=== PATIENT | female | born 1995 | race Caucasian/White ===

== ENCOUNTER 2022-08-24 00:54 | Emergency (ER) | payer SELFPAY ==
[~2022-08-24] VITALS: Ht 149.9 cm; Wt 74.0 kg
[2022-08-24 01:37] LABS: BASOPHILS % 0.5 % (0.0-2.0); HEMATOCRIT. 40.1 % (36.0-48.0); HEMOGLOBIN. 13.7 g/dL (12.0-16.0); LYMPHOCYTES % 43.3 % (20.0-50.0); MEAN CORPUSCULAR HEMOGLOBIN 28.8 pg (28.0-32.0); MEAN CORPUSCULAR VOLUME 84.5 fL (81.0-99.0); MEAN PLATELET VOLUME 10.1 fl (7.4-10.4); MONOCYTES % 5.7 % (2.0-8.0); NEUTROPHILS % 46.5 % (40.0-76.0); PLATELET 233 x1000/uL (130-400); RED BLOOD CELL COUNT 4.75 mill/uL (4.2-5.4); RED CELL DISTRIBUTION WIDTH 13.8 % (11.6-14.6)
[2022-08-24 01:47] LABS: CHLORIDE 108 mEq/L (98-107)
[2022-08-24 01:52] LABS: CLARITY URINE CLOUDY (CLEAR); COLOR URINE YELLOW (YELLOW); KETONES URINE NEGATIVE (NEGATIVE); LEUKOCYTE ESTERASE URINE 3+ (NEGATIVE); NITRITE URINE NEGATIVE (NEGATIVE); OCCULT BLOOD URINE 3+ (NEGATIVE); PROTEIN URINE NEGATIVE (NEGATIVE); SPECIFIC GRAVITY URINE 1.013 (1.005-1.030); UROBILINOGEN URINE 0.2 E.U./dL (0.2-1.0)
[2022-08-24 02:10] LABS: B-HCG QUANTITATIVE 68308 mIU/mL (<3)
[2022-08-24 03:00] VITALS: BP 105/60
[2022-08-24] MEDS ORDERED: CEPH500T MT (23:37)
== END 2022-08-24 03:18 | disposition home or self-care (01) ==
LOC: ER 01:09
DX: O20.0 Threatened abortion (principal); Z3A.08 8 weeks gestation of pregnancy; O23.31 Infections of other parts of urinary tract in pregnancy, first trimester
CPT/HCPCS: 36415; 76801; 76817; 80053; 81003; 81025; 84702; 85025; 86850; 86900; 86901; 87086; 99284; Z7610